=== PATIENT | male | born 1995 | race Hispanic/Latino ===

== ENCOUNTER 2020-11-07 21:57 | Emergency (ER) | payer SELFPAY ==
[2020-11-07] MEDS ORDERED: LIDOCAINE 1% MPF 5 ML VIAL ONE (22:58)
[2020-11-07] MEDS ORDERED: HYDROCODONE/APAP 5/325 MG TAB ONE (22:59)
[2020-11-07] MEDS ORDERED: TETANUS & DIPHTHERIA TOX,ADULT 0.5 ML VIAL ONE (22:59)
--- NOTE | 2020-11-07 23:28 | ER ---
Nurse's Notes [facility] Name: Jacey Heredia Age: 25 yrs Sex: Male : 1995 Arrival Date: 11/07/2020 Time: 22:08 Bed 7 Private MD: Diagnosis: Puncture wound with foreign body of right thumb without damage to nail-fish hook removed Presentation: 11/07 22:19 Chief complaint: Patient states: We were fishing and I got a hook stuck in my thumb. jb4 Coronavirus screen: Client denies travel out of the [place] in the last 14 days. At this time, the client does not indicate any symptoms associated with coronavirus-19. Ebola Screen: No symptoms or risks identified at this time. Initial Sepsis Screen: Does the patient meet any 2 criteria? No. Patient's initial sepsis screen is negative. Does the patient have a suspected source of infection? No. Patient's initial sepsis screen is negative. Risk Assessment: Do you want to hurt yourself or someone else? Patient reports no desire to harm self or others. Onset of symptoms was November 07, 2020. Transition of care: patient was not received from another setting of care. 22:19 Method Of Arrival: Ambulatory jb4 22:19 Acuity: RANDI 4 jb4 Historical: - Allergies: 22:20 No Known Allergies; jb4 - Home Meds: 22:20 None [Active]; jb4 - PMHx: 22:20 None; jb4 - PSHx: 22:20 None; jb4 - Immunization history:: Adult Immunizations unknown, Last tetanus immunization: unknown. - Social history:: Smoking status: Patient denies any tobacco usage or history of. Patient/guardian denies using alcohol, street drugs. Screenin:21 Abuse screen: Denies threats or abuse. Nutritional screening: No deficits noted. jb4 Tuberculosis screening: No symptoms or risk factors identified. Fall Risk None identified. Assessment: 22:21 General: Appears in no apparent distress. comfortable, Behavior is calm, cooperative, jb4 appropriate for age. Pain: Complains of pain in palmar aspect of distal phalanx of right thumb Pain does not radiate. Pain currently is 7 out of 10 on a pain scale. Neuro: Level of Consciousness is awake, alert, obeys commands, Oriented to person, place, time, situation. Cardiovascular: Patient's skin is warm and dry. Respiratory: Airway is patent Respiratory effort is even, unlabored, Respiratory pattern is regular, symmetrical. GI: No signs and/or symptoms were reported involving the gastrointestinal system. : No signs and/or symptoms were reported regarding the genitourinary system. EENT: No signs and/or symptoms were reported regarding the EENT system. Derm: Skin is intact, Skin is pink, warm \T\ dry. Musculoskeletal: Circulation, motion, and sensation intact. Range of motion: intact in all extremities. 23:42 Reassessment: Patient appears in no apparent distress at this time. Patient and/or jb4 family updated on plan of care and expected duration. Pain level reassessed. Patient is alert, oriented x 3, equal unlabored respirations, skin warm/dry/pink. Vital Signs: 22:19 BP 131 / 91; Pulse 61; Resp 16; Temp 98.1(O); Pulse Ox 99% on R/A; Weight 78.02 kg (R); jb4 Height 5 ft. 10 in. (177.80 cm) (R); Pain 7/10; 22:19 Body Mass Index 24.68 (78.02 kg, 177.80 cm) jb4 ED Course: 22:08 Patient arrived in ED. cf2 22:18 Boris Shaw NP is PHCP. pm1 22:18 Moises Pelaez MD is Attending Physician. pm1 22:19 Silas Santos, RN is Primary Nurse. jb4 22:20 Triage completed. jb4 22:20 Arm band placed on right wrist. jb4 22:21 Patient has correct armband on for positive identification. Placed in gown. Bed in low jb4 position. Call light in reach. Side rails up X 1. Pulse ox on. NIBP on. 22:50 Hand Right 3 View XRAY In Process Unspecified. EDMS 23:15 Assist provider with foreign body removal of a fish hook from right thumb using jb4 tweezers, Set up for procedure. Performed by Boris Shaw STARCHMAKER Dressed with bandaid Patient tolerated well. Patient did not have IV access during this emergency room visit. 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 Exp: jb4 11/21/2021. Lot #: [id number]. } Route: IM; Site: right deltoid; 23:36 Follow up: Response: No adverse reaction jb4 22:48 Drug: [place] (HYDROcodone-acetaminophen) 5 mg-325 mg 1 tabs Route: PO; jb4 23:36 Follow up: Response: No adverse reaction jb4 23:15 Drug: Lidocaine (1 %) 5 ml {Note: Administered by ER provider..} Volume: 5 ml; Route: jb4 Infiltration; Outcome: 23:27 Discharge ordered by . pm1 23:43 Discharged to home ambulatory, with family. jb4 23:43 Condition: stable 23:43 Discharge instructions given to patient, Instructed on discharge instructions, follow up and referral plans. medication usage, Demonstrated understanding of instructions, follow-up care, medications, Prescriptions given X 1. 23:43 Patient left the ED. jb4 Signatures: Dispatcher [employer] EDMS Boris Shaw NP STARCHMAKER pm1 Silas Santos, DENEEN RN jb4 Marjorie Fernandes 2
--- NOTE | 2020-11-07 23:28 | EDPHYS ---
Physician Documentation [facility] Name: Jacey Heredia Age: 25 yrs Sex: Male : 1995 Arrival Date: 11/07/2020 Time: 22:08 Bed 7 Private MD: ED Physician Moises Pelaez HPI: 11/07 23:30 This 25 yrs old Male presents to ER via Ambulatory with complaints of FISHING pm1 HOOK IN HAND. 23:30 Onset: The symptoms/episode began/occurred just prior to arrival. Associated signs and pm1 symptoms: The patient has no apparent associated signs or symptoms. Modifying factors: The patient symptoms are alleviated by nothing, the patient symptoms are aggravated by nothing. The patient has not experienced similar symptoms in the past. The patient has not recently seen a physician. Patient was fishing at [place] and he accidentally hooked his right thumb with a treble hook. Historical: - Allergies: 22:20 No Known Allergies; jb4 - Home Meds: 22:20 None [Active]; jb4 - PMHx: 22:20 None; jb4 - PSHx: 22:20 None; jb4 - Immunization history:: Adult Immunizations unknown, Last tetanus immunization: unknown. - Social history:: Smoking status: Patient denies any tobacco usage or history of. Patient/guardian denies using alcohol, street drugs. ROS: 23:30 Constitutional: Negative for fever, chills, and weight loss, Cardiovascular: Negative pm1 for chest pain, palpitations, and edema, Respiratory: Negative for shortness of breath, cough, wheezing, and pleuritic chest pain. 23:30 Neuro: Negative for headache, weakness, numbness, tingling, and seizure. 23:30 MS/extremity: Positive for puncture, of the palmar aspect of distal phalanx of right thumb, Negative for decreased range of motion, deformity. 23:30 Skin: Positive for puncture, of the palmar aspect of distal phalanx of right thumb. Exam: 23:30 Constitutional: This is a well developed, well nourished patient who is awake, alert, pm1 and in no acute distress. Head/Face: Normocephalic, atraumatic. 23:30 MS/ Extremity: Pulses equal, no cyanosis. Neurovascular intact. Full, normal range of motion. 23:30 Cardiovascular: Exam negative for acute changes, Rate: normal, Rhythm: regular, Pulses: no pulse deficits are appreciated. 23:30 Respiratory: Exam negative for acute changes, respiratory distress, shortness of breath. 23:30 Skin: Appearance: normal except for affected area, injury, puncture(s), of the palmar aspect of distal phalanx of right thumb, fish hook present. 23:30 Neuro: Exam negative for acute changes, Orientation: is normal, Mentation: is normal, Sensation: is normal, no obvious gross deficits. Vital Signs: 22:19 BP 131 / 91; Pulse 61; Resp 16; Temp 98.1(O); Pulse Ox 99% on R/A; Weight 78.02 kg (R); jb4 Height 5 ft. 10 in. (177.80 cm) (R); Pain 7/10; 22:19 Body Mass Index 24.68 (78.02 kg, 177.80 cm) jb4 Procedures: 23:25 Foreign Body Removal: a fishhook, from the right palmar aspect of distal phalanx of pm1 right thumb, by pushed away from miranda and backed out. The patient tolerated the removal well, 1 ml lidocaine administered locally . MDM: 22:19 Patient medically screened. pm1 23:25 Data reviewed: vital signs. Counseling: I had a detailed discussion with the patient pm1 and/or guardian regarding: the historical points, exam findings, and any diagnostic results supporting the discharge/admit diagnosis, radiology results, the need for outpatient follow up, to return to the emergency department if symptoms worsen or persist or if there are any questions or concerns that arise at home. 11/07 22:24 Order name: Hand Right 3 View XRAY pm1 Administered Medications: 22:48 Drug: Tetanus-Diphtheria Toxoid Adult 0.5 ml {[employer]: [employer]. Exp: jb4 11/21/2021. Lot #: [id number]. } Route: IM; Site: right deltoid; 23:36 Follow up: Response: No adverse reaction jb4 22:48 Drug: [place] (HYDROcodone-acetaminophen) 5 mg-325 mg 1 tabs Route: PO; jb4 23:36 Follow up: Response: No adverse reaction jb4 23:15 Drug: Lidocaine (1 %) 5 ml {Note: Administered by ER provider..} Volume: 5 ml; Route: jb4 Infiltration; Disposition: 11/08 04:51 Co-signature as Attending Physician, Moises Pelaez MD I agree with the assessment and tw4 plan of care. Disposition: 11/07/20 23:27 Discharged to Home. Impression: Puncture wound with foreign body of right thumb without damage to nail - fish hook removed. - Condition is Stable. - Discharge Instructions: Puncture Wound. - Prescriptions for Doxycycline Hyclate 100 mg Oral Tablet - take 1 tablet by ORAL route every 12 hours; 20 tablet. - Medication Reconciliation Form, Thank You Letter, Antibiotic Education, Prescription Opioid Use form. - Follow up: Emergency Department; When: As needed; Reason: Worsening of condition. Follow up: Private Physician; When: 2 - 3 days; Reason: Recheck today's complaints, Continuance of care, Re-evaluation by your physician. - Problem is new. - Symptoms are resolved. Signatures: Dispatcher [employer] EDKS Boris Shaw, GIULIANO STITCHER SET UP OPERATOR AUTOMATIC pm1 Silas Santos, DENEEN RN jb4 Moises Pelaez MD MD tw4 Corrections: (The following items were deleted from the chart) 11/07 23:43 23:27 11/07/2020 23:27 Discharged to Home. Impression: Puncture wound with foreign body jb4 of right thumb without damage to nail - fish hook removed. Condition is Stable. Forms are Medication Reconciliation Form, Thank You Letter, Antibiotic Education, Prescription Opioid Use. Follow up: Emergency Department; When: As needed; Reason: Worsening of condition. Follow up: Private Physician; When: 2 - 3 days; Reason: Recheck today's complaints, Continuance of care, Re-evaluation by your physician. Problem is new. Symptoms are resolved. pm1
[2020-11-08 01:51] VITALS: BP 131/91; TEMP 98.1; O2SAT 99
--- NOTE | 2020-11-08 09:56 | RAD REPORT ---
EXAM DESCRIPTION: RAD - Hand Right 3 View - 11/07/2020 10:50 pm CLINICAL HISTORY: Foreign body Pain, foreign body FINDINGS: Metallic fishhook is seen in the soft tissues of the thumb. No fracture evident.
== END 2020-11-07 23:43 | disposition home or self-care (01) ==
LOC: ER 21:57
DX: S61.041A Puncture wound with foreign body of right thumb without damage to nail, initial encounter (principal); W26.8XXA Contact with other sharp object(s), not elsewhere classified, initial encounter; W45.8XXA Other foreign body or object entering through skin, initial encounter
CPT/HCPCS: 90471; 90714; 99284